=== PATIENT | female | born 1945 | race Caucasian/White ===

== ENCOUNTER 2018-07-23 14:26 | Emergency (ER) | payer BC ==
[2018-07-23 14:34] VITALS: TEMP 98.3; O2SAT 97
[2018-07-23 15:25] LABS: BASO % 0.3 % (0.0-2.0); EOS # 0.1 K/uL (0.0-0.7); EOS % 2.2 % (0.0-4.0); HEMOGLOBIN 12.7 g/dL (12.0-16.0); LYMPH % 34.5 % (20.0-40.0); MEAN CELL VOLUME 93.2 fl (81.0-99.0); MEAN CORPUSCULAR HEMOGLOBIN 31.1 pg (27.0-31.0); MEAN CORPUSCULAR HGB CONC 33.4 g/dL (33.0-37.0); MEAN PLATELET VOLUME 7.5 fl (7.2-11.7); MONO # 0.4 K/uL (0.0-0.8); NEUT # 3.2 K/uL (1.8-7.0); NRBC % 0.1 % (0.0-0.0); RBC 4.08 Mil/uL (3.80-5.20); RED CELL DISTRIBUTION WIDTH 13.1 % (11.5-14.5); WHITE BLOOD COUNT 5.7 K/uL (4.8-10.8)
[2018-07-23 15:40] LABS: BLOOD UREA NITROGEN 14 mg/dl (7-17); CALCIUM 9.1 mg/dL (8.4-10.2); GFR NON-AFRICAN AMERICAN > 60
--- NOTE | 2018-07-23 15:44 | ED PDOC ---
HPI: Hypertension/Hypotension Chief Complaint (Nursing): High Blood Pressure Chief Complaint (Provider): High Blood Pressure History Per: Patient History/Exam Limitations: no limitations Additional Complaint(s): 72 y/o female presents to the ED due to high blood pressure and headache. Patient states she takes medication for high blood pressure but stopped taking them 2 weeks ago because it was controlled. She reports that her headache feel like a squeezing pressure/band around her head. Patient state she cannot remember her high blood pressure medication. Patient denies change in vision, weakness, or any numbness. PMD: Dr. Rizo ([place]) Past Medical History Reviewed: Historical Data, Nursing Documentation, Vital Signs Vital Signs: Last Vital Signs Temp 98.3 F 07/23/18 14:32 Pulse 82 07/23/18 14:59 Resp 19 07/23/18 14:59 BP 153/94 H 07/23/18 14:59 Pulse Ox 97 07/23/18 14:59 - Medical History PMH: HTN - Family History Family History: States: Unknown Family Hx - Home Medications Home Medications: Ambulatory Orders Medication Instructions Recorded Losartan [Cozaar] 25 mg PO DAILY #30 tab 07/23/18 - Allergies Allergies/Adverse Reactions: Allergies Allergy/AdvReac Type Severity Reaction Status Date / Time No Known Allergies Allergy Verified 07/23/18 14:32 Review of Systems ROS Statement: Except As Marked, All Systems Reviewed And Found Negative Eyes: Negative for: Vision Change Neurological: Positive for: Headache. Negative for: Weakness, Numbness Physical Exam - Reviewed Nursing Documentation Reviewed: Yes Vital Signs Reviewed: Yes - Physical Exam Appears: Positive for: Well, Non-toxic, No Acute Distress Head Exam: Positive for: ATRAUMATIC, NORMAL INSPECTION, NORMOCEPHALIC Skin: Positive for: Normal Color, Warm, Dry Eye Exam: Positive for: EOMI, Normal appearance, PERRL ENT: Positive for: Normal ENT Inspection Neck: Positive for: Normal, Painless ROM, Supple Cardiovascular/Chest: Positive for: Regular Rate, Rhythm. Negative for: Murmur Respiratory: Positive for: Normal Breath Sounds. Negative for: Wheezing Gastrointestinal/Abdominal: Positive for: Normal Exam, Soft. Negative for: Tenderness Back: Positive for: Normal Inspection. Negative for: L CVA Tenderness, R CVA Tenderness Extremity: Positive for: Normal ROM Neurological/Psych: Positive for: Awake, Alert, Normal Tone, Oriented (x3). Negative for: Motor/Sensory Deficits - Laboratory Results Result Diagrams: 07/23/18 15:10 07/23/18 15:10 - ECG O2 Sat by Pulse Oximetry: 97 Medical Decision Making Medical Decision Making: Time: 1504 Initial Impression: Work up for headache with uncontrolled high blood pressure. Rule out intracranial process. Initial Plan: -CT head -EKG -BMP -Troponin -CBC -Urinalysis 1530: This provider is able to get in touch with Dr. Rizo, states she is on Losartan 25mg daily. Other than that no other medical problems. 1535: If plans is normal, will plan to discharge home. 17:[address] unremarkable. Patient given home dose of Losartan. Will discharge home with refill prescription and will follow up with PMD. Scribe Attestation: Documented by Emmy Kim, acting as a scribe for Lucia Mccollum Provider Scribe Attestation: All medical record entries made by the Scribe were at my direction and personally dictated by me. I have reviewed the chart and agree that the record accurately reflects my personal performance of the history, physical exam, [facility] decision making, and the department course for this patient. I have also personally directed, reviewed, and agree with the discharge instructions and disposition. Disposition - Clinical Impression Clinical Impression: Hypertension - Disposition Disposition: Routine/Home Disposition Time: 17:13 Condition: IMPROVED Additional Instructions: Follow up with Dr. Carney within one week. Take blood pressure medications as prescribed and do not stop taking them unless instructed by your doctor. Return to the emergency department if symptoms worsen or if new symptoms develop. Prescriptions: Losartan [Cozaar] 25 mg PO DAILY #30 tab Instructions: High Blood Pressure (DC) Forms: [employer] (Burmese) Print Language: GERMAN
[2018-07-23 16:20] LABS: SQUAMOUS EPITHIAL < 1 /hpf (0-5); URINE BILIRUBIN NEGATIVE (NEGATIVE); URINE BLOOD NEGATIVE (NEGATIVE); URINE CLARITY CLEAR (Clear); URINE COLOR COLORLESS (YELLOW); URINE GLUCOSE (UA) NEG (NEGATIVE); URINE LEUKOCYTE ESTERASE NEG Leu/uL (Negative); URINE PROTEIN NEGATIVE (NEGATIVE); URINE UROBILINOGEN 0.2-1.0 mg/dL (0.2-1.0)
[2018-07-23 16:33] VITALS: RESP 18
--- NOTE | 2018-07-23 16:45 | CT ---
Date of service: 07/23/2018 PROCEDURE: CT HEAD WITHOUT CONTRAST. HISTORY: headache with Hypertension COMPARISON: None available. TECHNIQUE: Axial computed tomography images were obtained through the head/brain without intravenous contrast. Radiation dose: Total exam DLP = 631.77 mGy-cm. This CT exam was performed using one or more of the following dose reduction techniques: Automated exposure control, adjustment of the mA and/or kV according to patient size, and/or use of iterative reconstruction technique. FINDINGS: HEMORRHAGE: No intracranial hemorrhage. BRAIN: No mass effect or edema. No atrophy or chronic microvascular ischemic changes. VENTRICLES: Unremarkable. No hydrocephalus. CALVARIUM: Unremarkable. PARANASAL SINUSES: Unremarkable as visualized. No significant inflammatory changes. MASTOID AIR CELLS: Unremarkable as visualized. No inflammatory changes. OTHER FINDINGS: None. IMPRESSION: No evidence of acute intracranial hemorrhage mass effect or midline shift
[2018-07-23 18:27] VITALS: BP 132/74; PULSE 75
--- NOTE | 2018-07-24 13:04 | CARD ---
APPROVED REPORT Date of service: 07/23/2018 EKG Measurement Heart [id number] <Conclusion> Normal sinus rhythm Low voltage QRS Poor R wave progression in Precordial leads Abnormal ECG
== END 2018-07-23 18:27 | disposition home or self-care (01) ==
LOC: H.ER 14:26
DX: I10 Essential (primary) hypertension (principal); Z79.899 Other long term (current) drug therapy